=== PATIENT | female | born 1985 | race Hispanic/Latino ===

== ENCOUNTER 2017-08-11 12:37 | Emergency (ER) | payer MEDICARE ==
[2017-08-11 14:01] LABS: APPEARANCE,URINE SL CLOUDY (CLEAR); BILIRUBIN,URINE NEGATIVE (NEGATIVE); COLOR,URINE YELLOW (YELLOW); GLUCOSE, URINE (UA) >=1000 mg/dL (NEGATIVE); KETONES,URINE NEGATIVE (NEGATIVE); LEUKOCYTE ESTERASE ,URINE SMALL (NEGATIVE); NITRATE,URINE NEGATIVE (NEGATIVE); OCCULT BLOOD,URINE NEGATIVE (NEGATIVE); PROTEIN,URINE NEGATIVE (NEGATIVE); UROBILINOGEN,URINE 0.2 mg/dL (0.2-1.0)
[2017-08-11 14:35] LABS: BACTERIA,URINE Few /HPF (None Seen); RBC,URINE 0-1 /HPF (0-1); SQUAMOUS EPITHELIAL CELL,UR Few /HPF (0-2)
== END 2017-08-11 15:11 | disposition home or self-care (01) ==
LOC: EDH 12:37
DX: N76.0 Acute vaginitis (principal); B96.89 Other specified bacterial agents as the cause of diseases classified elsewhere; E11.9 Type 2 diabetes mellitus without complications; E07.9 Disorder of thyroid, unspecified
CPT/HCPCS: 81001; 87210; 87486; 87797